=== PATIENT | female | born 1945 | race Caucasian/White ===

== ENCOUNTER 2023-05-14 07:58 | Day surgery (SDC) | payer MEDICARE, OTHER, SELFPAY ==
[2023-05-14] VITALS (12 sets, daily range): BP systolic 103–146; BP diastolic 59–92; BMI 30.3
[2023-05-14 12:38] LABS: ACT-LR - POC 234 Seconds (116-155)
[2023-05-14 13:00] LABS: ACT-LR - POC 281 Seconds (116-155)
--- NOTE | 2023-05-14 13:27 | ITS.CL.ABL ---
Tomographic Tech - Ablation
Ablation
Procedure Report:
ELECTROPHYSIOLOGY ABLATION STUDY
DATE:: May 14, 2023 REFERRING: Dr. Dai Velásquez
INDICATION: Paroxysmal supraventricular tachycardia in the form of atrial fibrillation. Drug failure with metoprolol
HISTORY: See H and P. Atrial fibrillation refractory to metoprolol therapy which is paroxysmal
ANTIARRHYTHMIC DRUG: Metoprolol
PRE-PROCEDURE SHELBY: No atrial thrombus
PRESENTING RHYTHM: Sinus rhythm
'TIME-OUT': called and confirmed.
SEDATION/ANESTHESIA: provided via the anesthesia department using general anesthesia (LMA).
INTRAVENOUS/ARTERIAL ACCESS:
Right femoral venous - 8Fr
Left femoral venous - 8 Fr, 6 Fr
Ultrasound guidance for bilateral femoral vein access was utilized by me to obtain access with demonstration of normal anatomy
CHADS-VASC Score:
HAS-Bled Score
PROCEDURE:
1. A decapolar CS catheter was placed within the CS for mapping and pacing. This was also used as the reference catheter for the 3-D map.
2. The intracardiac ultrasound catheter was positioned in the RA to identify the FO for targeting of transseptal puncture, assist in identification of the pulmonary vein ostia, monitoring pre and post ablation pulmonary vein flow velocities,
monitoring for 'bubble' formation during RF application as a sign of thermal injury, and to monitor for pericardial effusion during mapping and ablation procedure. Left atrial size, LV ejection fraction, and pulmonary vein flows were monitored
pre and post ablation procedure. The other valves were inspected and found to be free of significant regurgitation or stenosis.
3. Half of the calculated heparin bolus was administered prior to the first transeptal puncture. Transseptal puncture was performed to diagnose RA and LA pressure so that safety of LA mapping and ablation could be further assessed, and to access
the left atrium and pulmonary veins for mapping and ablation. This entailed advancing an 8 Fr SL-1 sheath with dilator into the superior vena cava and withdrawing both (monitoring intracardiac ultrasound, fluoroscopy and tip pressure) with the tip
oriented toward the atrial septum. The fossa ovalis was engaged (indicated by sudden displacement of the sheath tip as well as tenting of the fossa seen on intracardiac ultrasound). Left atrial access required a pass with the [place] needle
extended. Left atrial catheter position was confirmed by pressure monitoring (RA mean pressure 8 mm Hg and LA mean pressure 14 mm Hg), LA saturation ( 99 %), as well as fluoroscopy. The sheath was advanced over the dilator and positioned in the
left atrium. This procedure was repeated for the Agilis sheath. The remainder of the calculated heparin bolus was administered and heparin was
infused to maintain ACT at 300 -350 seconds throughout the case.
4. RA pacing was performed via the proximal decapolar poles and LA pacing was performed via the distal decapolar poles.
5. A quadrapolar catheter was first positioned at the His position for His Bundle recording which was tagged via the 3-D Navex sytem, and then passed to the RVA for RV pacing and recording.
6. The ablation catheter was positioned through one of the transeptal seaths and a 20 pole ring mapping catheter was positioned through the second seath into the LA and then the ostia of the LIPV, LSPV, RSPV and the RIPV.
7. Next, a 3-D map was created using Navex. A 3-D reconstructed CT image was compared to the 3-D Navex map to assist in anatomic interpretation, mapping and ablation. The CT image and the NavX image were fused.
8. The pulmonary veins were isolated with pulsed field ablation in the pulsed light catheter. Antral and wide [place] lesions were given to each of the 4 pulmonary veins with additional substrate modified outside the pulmonary veins on the roof
posterior wall and floor of the left atrium from jovon to jovon. This also rendered the left atrial posterior wall isolated as well which was confirmed with a multipolar catheter. Entrance and exit block was confirmed in all 4 pulmonary veins as
well as electrical signs in the left atrial posterior wall. Follow-up EP study demonstrated no other nonpulmonary vein triggers for atrial fibrillation.
9. Normal sinus node function noted. There was a device related malfunction after ablation but prior to the end of the procedure where the Amplatz wire could not be manipulated in isolation but could be withdrawn with the pulse select ablation
catheter and the pulse select ablation catheter could be extended and withdrawn into the sheath was which was performed in the left atrium and the pulse select catheter and wire assembly could be removed together into the sheath in the left atrium
and removed from the body with the transseptal sheath remaining in the left atrium for multipolar mapping. Inspection of the catheter demonstrated a small string-like structure at the tip of the pulsed light catheter at its interface with the
Amplatz wire and the assembly will be sent for evaluation to the elevator serviceman. There is no apparent device related thrombus or structure noted on intracardiac ultrasound prior to removal of this assembly and immediate examination of the patient
upon extubation demonstrated intact Mini-Mental status strength and neurologic exam.
TOTAL FLOURO TIME: 12.7 minutes
TOTAL RF DURATION: 0 minutes
REVERSAL OF HEPARIN: 40 mg of protamine, slow IV administration [id number] stitch sutures to each groin
COMPLICATIONS:
None
Intracardiac US shows no pericardial effusion post ablation.
SUMMARY:
Complex left atrial mapping and ablation.
Isolation of all 4 pulmonary veins as above as well as left atrial posterior wall isolation and extrapulmonary vein substrate.
RECOMMENDATIONS:
1. Admit to monitored bed. Seaths out once ACT < 185 seconds.
2. Resume anticoagulation
3. Out of bed in 4 hours
4. Anticipate discharge on May 15, 2023 and will consider discontinuation of metoprolol at discharge
Copy to:Dr. Dai Velásquez at [facility] in [place], [place]. Dept of Electrophysiology pls send copy of report
--- NOTE | 2023-05-14 15:59 | CM ---
Addendum entered by CONCHA Escalante 05/14/23 16:06:
Pharmacy unable to locate in [facility]-
[facility] [address] [facility] [phone]
Original Note:
CM following for DC planning needs.
Met w/ patient at bedside to complete initial assessment.
Pt. resides in a private, 2 story home w/ spouse. Functionally, patient is indep. w/ ADLs, mobility without the use of any assisted device. Pt. has CPAP at home, which she uses regularly.
Pt. has Rx plan and uses [facility] in [facility] for prescription needs.
Anticipated DC plan is for home, no needs.
CM to follow.
[2023-05-14] MEDS: ANESTHETIC LOZENGE 1 LOZENGE PO ×2 (16:32→22:25)
--- NOTE | 2023-05-14 18:09 | PTCARENOTE ---
Pt received post PVI awake, alert and oriented. Bedrest maintained as ordered. Bilateral groin sites WNL. Pt OOB at 1800. Gait steady. Voided in the BR. OOB to the chair for dinner. C/o of sore throat, medicated with cepacol as ordered with relief.
[2023-05-14] MEDS: ELIQUIS 5 MG PO (21:21)
[2023-05-15] MEDS: TYLENOL 650 MG PO (05:25)
[2023-05-15 05:28] VITALS: BP 118/56
--- NOTE | 2023-05-15 05:30 | PTCARENOTE ---
no changes in assessment overnight, pt VSS. NSR. RA. AM labs drawn and sent. EKG done. pt resting between care.
[2023-05-15 05:57] LABS: Hematocrit 31.3 % (37.0-47.0); Mean Corp Hgb Conc. 35.1 g/dL (33.0-37.0); Mean Corpuscular Hgb 31.8 pg (27.0-31.0); Mean Corpuscular Volume 90.5 fL (81.0-99.0); Platelet Count 118 10^3/uL (130-400); Red Blood Cell Count 3.46 10^6/uL (4.20-5.40); Red Cell Dist. Width 13.1 % (11.5-14.5); White Blood Cell Count 3.5 10^3/uL (4.8-10.8)
[2023-05-15 06:30] LABS: Blood Urea Nitrogen 12 mg/dl (7-17); Calcium 8.6 mg/dl (8.4-10.2); Carbon Dioxide 26 mmol/L (22-30); Chloride 100 mmol/L (98-107); Estimated Creatinine Clearance 70 ml/min; Glucose 108 mg/dl (70-99); Sodium 132 mmol/L (135-145); eGFR > 60.00
[2023-05-15 07:19] VITALS: BP 94/57
[2023-05-15 07:19] LABS: Hepatitis C Antibody Negative (Negative)
[2023-05-15] MEDS: ELIQUIS 5 MG PO (08:02)
--- NOTE | 2023-05-15 08:35 | W.PN.CARDCBS ---
Addendum entered and electronically signed by John Ricks MD 05/15/23 09:16:
patient seen and discussed details of procedure
SR overnight
mild inspiratory pain
overall well
hemostatic bilateral groins this am
exam:
per infrastructure engineer note
non focal neurologically
aao x 3
jvp 6
no resp distress
SR on tele
Impression:
Symptomatic paroxysmal Afib
post PF PVI 05/14/23
Mild MR
JAIME/CPAP
prior ILR
SUMMARY:
Complex left atrial mapping and ablation.
Isolation of all 4 pulmonary veins as above as well as left atrial posterior wall isolation and extrapulmonary vein substrate.
Plan:
post ablation feels good
mild sore throat and dry cough
groins stable
tele SR
OAC Eliquis
Stop daily Metoprolol, PRN as needed
Activity restrictions reviewed
f/u Dr. Pisano in 1-2 mo
home today
Original Note:
Today's Communication / Plan
-
stable for d/c home
Impression / Plan
-
PCP: Dr. Guidry
PCY: Dr. Pisano
Impression:
Symptomatic paroxysmal Afib
post PF PVI 05/14/23
Mild MR
JAIME/CPAP
prior ILR
SUMMARY:
Complex left atrial mapping and ablation.
Isolation of all 4 pulmonary veins as above as well as left atrial posterior wall isolation and extrapulmonary vein substrate.
Plan:
post ablation feels good
mild sore throat and dry cough
groins stable
tele SR
OAC Eliquis
Stop daily Metoprolol, PRN as needed
Activity restrictions reviewed
f/u Dr. Pisano in 1-2 mo
home today
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
Subjective
Date of Service: May 15, 2023
mild sore throat with dry cough, no cp, sob
Objective
Labs:
05/15/23 05:36
05/15/23 05:36
Labs
Hgb 11.0 g/dL (12.0-16.0) L 05/15/23 05:36
Hct 31.3 % (37.0-47.0) L 05/15/23 05:36
Plt Count 118 10^3/uL (130-400) L 05/15/23 05:36
Sodium 132 mmol/L (135-145) L 05/15/23 05:36
Potassium 4.0 mmol/L (3.5-5.1) 05/15/23 05:36
BUN 12 mg/dl (7-17) 05/15/23 05:36
Creatinine 0.6 mg/dL (0.6-1.0) 05/15/23 05:36
Glucose 108 mg/dl (70-99) H 05/15/23 05:36
Vital Signs and I&O:
Vital Signs
Temp Pulse Resp BP Pulse Ox
98.1 F 54 16 94/57 96
05/15/23 07:19 05/15/23 07:19 05/15/23 07:19 05/15/23 07:19 05/15/23 07:19
Vital Signs
Temp Pulse Resp BP Pulse Ox
98.1 F 54 16 94/57 96
05/15/23 07:19 05/15/23 07:19 05/15/23 07:19 05/15/23 07:19 05/15/23 07:19
Physical Exam
Physical Exam
NAD, AOX3
S1, S2, RRR
CTAB, non labored
SNTND Bsx4
L fem site c/d/i, mild ecchymosis, soft
R fem site c/d/i soft, no HT
--- NOTE | 2023-05-15 11:36 | W.DS.TRANS ---
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
-
Discharge Instructions:
Discharge Diagnosis/Procedures Afib post ablation
Diet Low Sodium
Driving Restrictions No driving for 24 hours
Instructions:
Stand-Alone Forms: DC Instructions- Cath/EP Lab
Changes to Home Medications: Yes
Discharge Medications:
DC Medications w/original date entered in viavoo
apixaban 5 mg tablet (Eliquis) 5 mg PO BID 05/14/23
cholecalciferol (vitamin D3) 10 mcg (400 unit) capsule (Vitamin D3) 10 mcg PO DAILY 05/14/23
mecobalamin (vitamin B12) 1,000 mcg chewable tablet (B12 Active) 1,000 mcg PO DAILY 05/14/23
metoprolol tartrate 25 mg tablet 12.5 mg (1/2 x 25 mg) PO DAILY PRN elevated HR #0 tabs 05/15/23
Home Medication Changes
metoprolol PRN not daily
Pending Results: No
== END 2023-05-15 10:52 | disposition home or self-care (01) ==
LOC: CATH 07:58
PROVIDERS: Nurse Practitioner Adult Health; ATTENDING PHYSICIAN Internal Medicine Cardiovascular Disease; OTHER PHYSICIAN Orthopaedic Surgery; PRIMARYCARE PHYSICIAN Specialist
DX: I48.0 Paroxysmal atrial fibrillation (principal); G47.33 Obstructive sleep apnea (adult) (pediatric); I34.0 Nonrheumatic mitral (valve) insufficiency; Z79.01 Long term (current) use of anticoagulants; R05.9 Cough, unspecified; J02.9 Acute pharyngitis, unspecified
CPT/HCPCS: C1894; C1730; C1769; C1892; C1759; 76937; 80048; 83735; 85027; 85347; 86803; 93005; 93656; C1732; C1760; C2628; Q9967